=== PATIENT | male | born 1970 | race Caucasian/White ===

== ENCOUNTER → 2016-07-19 | Outpatient (CLI) | payer BC ==
[2016-07-19 09:46] LABS: HEMOGLOBIN 16.3 gm/dl (14.0-17.5); RED BLOOD COUNT 5.47 M/UL (4.20-5.50); WHITE BLOOD COUNT 6.9 K/UL (4.5-11.0)
== END ==
LOC: LAB 09:22
PROVIDERS: Nurse Practitioner Family
DX: M54.5 Low back pain (principal); R10.9 Unspecified abdominal pain; M54.6 Pain in thoracic spine
CPT/HCPCS: 36415; 72072; 72100; 85025

== ENCOUNTER → 2016-08-12 | Outpatient (CLI) | payer BC | LOC: US 09:02 | DX: K21.0 Gastro-esophageal reflux disease with esophagitis (principal) | CPT/HCPCS: 76705 ==